=== PATIENT | female | born 1970 | race Caucasian/White ===

== ENCOUNTER 2016-10-11 07:25 | Day surgery (SDC) | payer OTHER ==
[2016-09-06 08:14] VITALS: BMI 32.0
--- NOTE | 2016-09-06 08:38 | PAT Medication Instructions ---
Service Date Sep 06, 2016. Current Home Medication List Cholecalciferol (Vitamin D), 2,000 PO QAM Cyanocobalamin (Vitamin B-12), 2,000 MCG PO QAM Fiber Laxative (Fiber Laxative), Unknown Dose Lisinopril (Zestril), 40 MG PO HS Metformin Hcl (Glucophage), 2 TAB PO BID Multivitamin (Multivitamin), 1 TAB PO QAM Quetiapine Fumarate (Seroquel), 100 MG PO HS Medication Instructions For Your Scheduled Surgery - Hold the following medications 48 hours prior to surgery: Metformin Hcl (Glucophage), 2 TAB PO BID - Hold the following medications 24 hours prior to surgery: Lisinopril (Zestril), 40 MG PO HS - Hold the following medications the morning of surgery: Multivitamin (Multivitamin), 1 TAB PO QAM Cholecalciferol (Vitamin D), 2,000 PO QAM Cyanocobalamin (Vitamin B-12), 2,000 MCG PO QAM Fiber Laxative (Fiber Laxative), Unknown Dose - Take the following medications as scheduled the night before surgery: Quetiapine Fumarate (Seroquel), 100 MG PO HS Nothing to eat or drink after midnight If you have any questions please call us at [phone] or [phone] or [phone]
[2016-09-06 08:57] LABS: BASO % 0.3 %; BASO ABS # 0.02 K/uL (0-0.2); COMPLETE YES; EOS % 2.1 %; HEMATOCRIT 39.1 % (37-47); IG% 0.3 %; LYMPH % 25.6 %; MEAN CELL VOLUME 96.1 fL (80-100); MEAN CORPUSCULAR HEMOGLOBIN 33.4 pg (25-34); MEAN CORPUSCULAR HGB CONC 34.8 g/dl (32-36); MEAN PLATELET VOLUME 9.5 fL (7.4-10.4); MONO % 6.3 %; NEUT % 65.4 %; PLATELET COUNT 248 K/uL (130-400); RED BLOOD COUNT 4.07 M/uL (4.2-5.4); WHITE BLOOD COUNT 6.63 K/uL (4.8-10.8)
[2016-09-06 09:22] LABS: BUN/CREATININE RATIO 16.5 (10-20); CALCIUM 11.2 mg/dl (8.5-10.1); CREATININE 0.8 mg/dl (0.60-1.20); POTASSIUM 4.4 mmol/L (3.5-5.1)
[~2016-10-11] VITALS: Ht 167.6 cm; Wt 89.9 kg
[~2016-10-11 07:25] MED LIST: CHOL100010 PO; CYAN10005 PO; FIBER; GLC/500 PO; LACTATED RINGER'S 1000ML 1,000 ML IV SCH; LISI-461 PO; MULT-506 PO; QUET1TAB34 PO
[2016-10-11] MEDS ORDERED: FENTANYL CITRATE INJ 50 MCG/1 ML 2 ML VIAL ONE (07:57)
[2016-10-11] MEDS ORDERED: MIDAZOLAM HCL 1 MG/ML 2ML VIAL ONE (07:57)
--- NOTE | 2016-10-11 07:58 | History and Physical ---
History & Physical Date Oct 11, 2016. Chief Complaint primary hyperparathyroidism and hypercalcemia History of Present Illness The patient is a 45 year old female who was referred by Dr. Jony Shirley for primary hyperparathyroidism and hypercalcemia. She had been experiecing fatigue and depression and was noted to have elevated PTH and calcium. She denied kidney stones. Her most recent labs include: PTH 08/12/16: 79 Calcium 07/29/16: 11.9 Parathyroid scan showed: Zero and 3 hour planar and SPECT imaging findings are suggestive of a small left lower pole parathyroid adenoma. Sensitivity and specificity could be increased with fusion of CT scan of the neck if clinically indicated. Parathyroid U/S showed 1. subcentimeter soft tissue nodules posterior to the left mid lobe and inferior to the left lobe, either of which could represent a parathyroid adenoma. 2. Heterogeneous thyroid with no suspicious nodules. She is currently on Vitamin D 2000 units. Past Medical/Surgical History Surgical History: Knee arthroscopy Umbilical hernia repair 1992, 2006 Additional History Hepatic Disease: No Endocrine Disorder: Yes (diabetes, subclinical hypothyroidism, hyperparathyroidism, hypercalcemia) Kidney Disease: No Hypertension: Yes Heart Disease: No Bleeding Tendencies: No Infectious Diseases: No Allergies Coded Allergies: BEE STING (Verified Allergy, Severe, ANAPHYLAXIS, 09/06/16) Aspirin (Verified Allergy, Unknown, nausea, 09/06/16) Onion (Verified Allergy, Unknown, hives,pruritis, 09/06/16) Cetirizine (Verified Adverse Reaction, Severe, "KNOCKS ME OUT", 09/06/16) Home Medications Scheduled Cholecalciferol (Vitamin D), 2,000 PO QAM Cyanocobalamin (Vitamin B-12), 2,000 MCG PO QAM Lisinopril (Zestril), 40 MG PO HS Metformin Hcl (Glucophage), 2 TAB PO BID Multivitamin (Multivitamin), 1 TAB PO QAM Quetiapine Fumarate (Seroquel), 100 MG PO HS Miscellaneous Medications Fiber Laxative (Fiber Laxative), Unknown Dose Physical Examination Skin: warm/dry Neck: supple, no adenopathy, trachea midline Respiratory/Chest: normal breath sounds, no respiratory distress Cardiovascular: regular rate, rhythm, no murmur Diagnosis parathyroid adenoma, primary hyperparathyroidism, hypercalcemia ASA Classification: ASA Class I Plan of Treatment The patient was educated on her options and she will undergo parathyroidectomy at [facility] on 10/11/16 with intraoperative monitoring of the recurrent laryngeal nerves with intraoperative rapid PTH assay. Informed consent was obtained including a thorough explanation fo the procedure, risks, and benefits. There was an opportunity for questions and answers. Nursing counseling was provided.
[2016-10-11 08:00] VITALS: BP 121/72; PULSE 58; TEMP 36.8; O2SAT 96; Ht 167.6 cm; Wt 89.9 kg
[2016-10-11] MEDS ORDERED: LIDOCAINE/EPINEPHRINE 1% 20 ML VIAL ONE (08:59)
[2016-10-11] MEDS ORDERED: BACITRACIN OINT 15 GM TUBE ONE (09:00)
[2016-10-11] MEDS ORDERED: PHENYLEPHRINE 100MCG/ML 5ML SYR IV PRN (09:30)
[2016-10-11] MEDS ORDERED: EpHEDrine SULFATE INJ 50 MG/ML AMP IV PRN (09:30)
[2016-10-11] MEDS ORDERED: ATROPINE SULFATE 0.1 MG/ML 5ML SYR IV PRN (09:30)
[2016-10-11] MEDS ORDERED: ONDANSETRON INJ 2 MG/ML 2 ML VIAL IV PRN ×2 (09:30→10:15)
[2016-10-11] MEDS ORDERED: HYDROmorphone INJ 0.5 MG/0.5 ML SYR IV PRN (09:30)
[2016-10-11] MEDS ORDERED: SUCCINYLCHOLINE CHLORIDE 20 MG/ML 10 ML VIAL IV ONE (09:46)
[2016-10-11] MEDS ORDERED: PROPOFOL IV EMULSION 10 MG/ML 20 ML VIAL IV ONE (09:46)
[2016-10-11] MEDS ORDERED: LIDOCAINE HCL 2% 2 ML VIAL (20MG/ML) ONE (09:46)
[2016-10-11] MEDS ORDERED: DEXAMETHASONE SOD INJ 4 MG/ML VIAL ONE (09:48)
[2016-10-11] MEDS ORDERED: ONDANSETRON INJ 2 MG/ML 2 ML VIAL ONE (09:48)
[2016-10-11] MEDS ORDERED: SODIUM CHLORIDE 0.9% 1000ML 1,000 ML IV SCH (10:02)
--- NOTE | 2016-10-11 10:02 | Discharge Instructions ---
Discharge Instructions Date of Service Oct 11, 2016. Admission Reason for Admission: Parathyroid Adenoma, Hyperparathyroidism Discharge Discharge Diagnosis / Problem: parathyroid adenoma Discharge Goals Goal(s): Therapeutic intervention Activity Recommendations Activity Limitations: as noted below Lifting Limitations: no more than 5 pounds Exercise/Sports Limitations: as tolerated (no strenuous activity) Shower/Bathe: keep incision dry . Instructions / Follow-Up Instructions / Follow-Up Patient was instructed to begin taking 3 tums 3 times a day until her follow up on Monday. Patient will follow up on Monday at [facility] with Dr. Young for suture removal. Current Hospital Diet Patient's current hospital diet: Discharge Diet Recommended Diet: Regular Diet Procedures Procedures Performed: parathyroidectomy Pending Studies Studies pending at discharge: no Medical Emergencies . Who to Call and When: Medical Emergencies: If at any time you feel your situation is an emergency, please call 911 immediately. . Non-Emergent Contact Non-Emergency issues call your: Primary Care Provider . . "Provider Documentation" section prepared by Kacey Valle. VTE Core Measure Inpt VTE Proph given/why not?: SCD's
[2016-10-11] MEDS ORDERED: ACETAMINOPHEN 325 MG TAB PO PRN (10:15)
[2016-10-11] MEDS ORDERED: HYDROCODONE/ACETAMOPHEN 5/325MG TAB PO PRN (10:15)
--- NOTE | 2016-10-11 10:52 | [facility] Post Operative Brief Note ---
Immediate Operative Summary Operative Date Oct 11, 2016. Pre-Operative Diagnosis Hyperparathyroidism and hypercalcemia Post-Operative Diagnosis Hyperparathyroidism and hypercalcemia Procedure(s) Performed Parathyroidectomy Surgeon Dr. Adam Young Disaster Recovery Consultant Surgeon(s) Kacey Valle PA-C Estimated Blood Loss 5 ml Findings A) 1.0 cm superficial parathyroid adenoma located mid pole left thyroid lobe anteriorly. B) Pre-surgical PTH drawn before the start of surgery today was hemolyzed, so another PTH level drawn before removal of her adenoma was 154.4. The 15 minute post-excision PTH was 72.2 Specimens Permanent specimen A: Parathyroid adenoma Blood for PTH set at 0906 Pre op hemolysed and set at 0937 for 2nd pre op post PTH sent out at 0958 Complication(s) None Disposition Recovery Room / PACU
--- NOTE | 2016-10-11 11:18 | Anesthesiology Progress Note ---
Anesthesia Post Op Note Date & Time Oct 11, 2016 at 11:18 Vital Signs Pain Intensity: 0 Vital Signs Past 12 Hours Date Time Temp Pulse Resp B/P Pulse Ox O2 Delivery O2 Flow Rate FiO2 10/11/16 10:55 36.2 82 18 164/85 100 Mask 10 10/11/16 08:00 36.8 58 16 121/72 96 Room Air Notes Mental Status: alert / awake / arousable, participated in evaluation Pt Amnestic to Procedure: Yes Nausea / Vomiting: adequately controlled Pain: adequately controlled Airway Patency, RR, SpO2: stable & adequate BP & HR: stable & adequate Hydration State: stable & adequate Anesthetic Complications: no major complications apparent
[2016-10-11 11:48] VITALS: BP 147/77; PULSE 70; TEMP 36.8; O2SAT 93
[2016-10-11 12:20] VITALS: BP 142/72; PULSE 76; O2SAT 95
--- NOTE | 2016-10-11 12:27 | OPERATIVE REPORT ---
DATE OF OPERATION: 10/11/2016 PREOPERATIVE DIAGNOSIS: Primary hyperparathyroidism secondary to parathyroid adenoma. POSTOPERATIVE DIAGNOSIS: Primary hyperparathyroidism secondary to parathyroid adenoma. PROCEDURE: Left sided minimally invasive parathyroidectomy with intraoperative monitoring of the recurrent laryngeal nerves. SURGEON: Dr. Young. MANAGER CONTRACTING: Kacey Valle PA-C. ANESTHESIA: General via endotracheal tube. ESTIMATED BLOOD LOSS: 5 mL. ROLL FORMER: Dr. Jony Shirley, [facility]. PRIMARY CARE PHYSICIAN: Dr. Cesario Costello, [facility]. INDICATIONS FOR THE PROCEDURE: This is a 45-year-old woman with primary hyperparathyroidism. Imaging studies done prior to surgery localized a left sided probable parathyroid adenoma that was either going to be at the mid or inferior pole of the left thyroid lobe. A full informed consent including the indications, risks, benefits, and alternatives was provided in a relaxed office setting. There was an opportunity for questions and answers. SUMMARY OF FINDINGS: 1. There was a 1 cm parathyroid adenoma located anteriorly and superficially at the mid portion of the left thyroid lobe. 2. The first parathyroid hormone level send before any surgery was begun was hemolyzed, therefore there was another parathyroid hormone level drawn during surgery but before excision of the parathyroid adenoma. Just a few minutes after this was drawn, the parathyroid adenoma was removed. Then I waited 15 minutes before drawing another parathyroid hormone level. The two parathyroid hormone levels were 154.4 for the level drawn before parathyroid adenoma excision. The second level was 72.2 which occurred 15 minutes after excision of the parathyroid adenoma. This met the criteria for a 50% reduction in parathyroid hormone level at 15 minutes. No further exploration was performed. 3. Frozen section confirmed parathyroid hyperplasia. COMPLICATIONS: None. Sponge and needle count was correct at the end of the case. DESCRIPTION OF PROCEDURE: In the preoperative area, I marked exactly where I wanted to make the incision for her left sided minimally invasive parathyroid surgery. She was then taken to the operating room and she was intubated with no difficulty. The monitoring individual, Daniella, confirmed that the endotracheal tube was in good position to facilitate monitoring. I then injected with 10 mL of 1% lidocaine 1:100,000 parts epinephrine into the incision line. Prior to the prep, the patient had already had a shoulder roll placed and was positioned well. The patient was then prepped and draped in standard fashion. The incision was made with a 10 blade down through skin, subcutaneous tissue and platysma. Superior and inferiorly based platysmal flaps were elevated. The strap muscles were divided in the midline and retracted laterally. The adenoma was immediately found anteriorly and extremely superficial at the mid portion of the left thyroid lobe. It was dissected away with bipolar electrocautery and Metzenbaum scissors. A small portion of this was sent to pathology and this returned positive for hyperplastic parathyroid tissue. Fifteen minutes after excision of the parathyroid adenoma the parathyroid hormone level was drawn, and there was greater than a 50% drop in the pre PTH level, so no further dissection was carried out looking for additional parathyroid tissue. There was no need to dissect down to the left recurrent laryngeal nerve, as the parathyroid adenoma was so superficial and anterior. The strap muscles were reapproximated using running 3-0 Vicryl suture. Platysma was reapproximated using running 4-0 chromic. The dermis closure was with a simple inverted and buried 4-0 chromic suture. Skin was closed with 5-0 nylon in interrupted fashion and running 6-0 nylon. The patient's skin was cleaned with hydrogen peroxide followed by alcohol and then dried. Bacitracin ointment followed by Telfa and Tegaderm was positioned. The patient was allowed to awake upon her own and transported to recovery in no apparent distress. I attest to the content of the Intraoperative Record and any orders documented therein. Any exceptions are noted below. JORGE
[2016-10-11 12:50] VITALS: BP 147/68; PULSE 69; TEMP 36.8; O2SAT 96
== END 2016-10-11 13:30 | disposition home or self-care (01) ==
LOC: C.ACU 07:25
PROVIDERS: ATTEND Otolaryngology
DX: E21.0 Primary hyperparathyroidism (principal); D35.1 Benign neoplasm of parathyroid gland; E83.52 Hypercalcemia; Z98.890 Other specified postprocedural states; E11.9 Type 2 diabetes mellitus without complications; Z68.43 Body mass index [BMI] 50.0-59.9, adult; F31.9 Bipolar disorder, unspecified; M19.90 Unspecified osteoarthritis, unspecified site; Z87.891 Personal history of nicotine dependence